=== PATIENT | male | born 1980 | race American Indian/Alaskan Native ===

== ENCOUNTER 2019-04-22 23:15 | Emergency (ER) | payer OTHER ==
[2019-04-23 00:02] VITALS: BP 158/96
--- NOTE | 2019-04-23 00:57 | XRay Report ---
Left shoulder, 3 views INDICATION: Pain following injury today FINDINGS: The joint space is maintained. There is no fracture or dislocation. No spurring or arthriti c change. No bone lesion or periostitis. No significant abnormality. IMPRESSION: Negative study Signer Name: Anthony Cummings MD Signed: 04/23/2019 12:53 AM Workstation Name: [id number]
== END 2019-04-23 04:15 | disposition left against medical advice (07) ==
LOC: ED 23:15
DX: M25.512 Pain in left shoulder (principal); Z53.21 Procedure and treatment not carried out due to patient leaving prior to being seen by health care provider